=== PATIENT | male | born 1985 | race African-American/Black ===

== ENCOUNTER 2021-01-01 22:10 | Emergency (ER) | payer SELFPAY ==
[~2021-01-01] VITALS: Ht 175.3 cm; Wt 106.6 kg
[2021-01-01 22:15] VITALS: BP 175/80
[2021-01-02] MEDS ORDERED: ACETAMINOPHEN 325 MG TAB PO ONE (01:00)
== END 2021-01-02 01:50 | disposition left against medical advice (07) ==
LOC: EDBD 22:10 → ER 22:14
DX: M54.2 Cervicalgia (principal); Z53.21 Procedure and treatment not carried out due to patient leaving prior to being seen by health care provider
CPT/HCPCS: 72125